=== PATIENT | female | born 1985 | race Caucasian/White ===

== ENCOUNTER 2016-10-02 08:00 | Outpatient (RCR) | payer BC | END 2016-10-21 | disposition home or self-care (01) | LOC: EDBD → PTY 08:00 | DX: M25.372 Other instability, left ankle (principal); M76.72 Peroneal tendinitis, left leg | CPT/HCPCS: 97032; 97110; 97140; 97162; G0283 ==

== ENCOUNTER 2016-10-28 08:00 | Outpatient (RCR) | payer BC | END 2016-11-18 | disposition home or self-care (01) | LOC: EDBD → PTY 08:00 | DX: M25.372 Other instability, left ankle (principal); M76.72 Peroneal tendinitis, left leg | CPT/HCPCS: 97110; 97140; G0283 ==

== ENCOUNTER 2016-11-19 14:13 | Outpatient (RCR) | payer BC | END 2016-12-19 | disposition home or self-care (01) | LOC: PTY 14:13 | DX: M25.372 Other instability, left ankle (principal); M76.72 Peroneal tendinitis, left leg | CPT/HCPCS: 97110; 97140; G0283 ==